=== PATIENT | female | born 1985 | race Caucasian/White ===

== ENCOUNTER 2016-06-05 13:07 | Outpatient (RCR) | payer OTHER ==
--- OUTSIDE RECORDS SUMMARY | 2016-03-11 12:51 | XMS REPORT | Continuity of Care Document ---
Author Author Interface Organization Interface Address Unknown Phone Unavailable Problems Problem Status Onset Date Classification Date Reported Comments Source No data available for this section Problem 11/01/2013 [facility] , function (observable entity) Resolved 09/20/2002 Problem 02/17/2014 [facility] Excessive growth, affecting management of mother, antepartum Diagnosis 09/29/2013 [facility] Normal delivery 02/12/2014 Diagnosis 02/17/2014 [facility] Medications Medication Details Route Status Patient Instructions Ordering Provider Order Date Source Allergies, Adverse Reactions, Alerts Substance Category Reaction Severity Reaction type Status Date Reported Comments Source Loratadine / Pseudoephedrine Assertion Palpitations Drug allergy [facility] Immunizations Immunization Date Given Site Status Last Updated Comments Source No data available for this section No data available for this section [facility] influenza virus vaccine 02/12/2014 Left Deltoid influenza virus vaccine Trinh [employer] Tdap 02/12/2014 Right Deltoid tetanus/diphth/pertuss (Tdap) adult/adol<sup>1< /sup> Trinh <sup>1</sup> Reason for Medication: See Instructions [employer]. Results Order Name Results Value Reference Range Date Interpretation Comments Source Vital Signs Vital Sign Value Date Comments Source Encounters Location Location Details Encounter Type Encounter Number Reason For Visit Attending Provider ADM Date DC Date Status Source [facility] [id number] Outpatient [id number] Anderson May 09/25/2013 09/25/2013 Active [employer] [facility] [id number] Outpatient [id number] Anderson May 10/27/2013 10/27/2013 Active [employer] [facility] [id number] Outpatient [id number] Anderson May 02/01/2014 02/02/2014 Active [employer] [facility] [id number] Inpatient [id number] Anderson Yadira 02/11/2014 02/13/2014 Active [facility] [id number] Anderson May 10/27/2013 10/29/2013 [facility] [id number] Anderson Yadira 09/25/2013 09/25/2013 [facility] Inpatient [id number] Anderson May 02/11/2014 02/13/2014 [facility] Outpatient Bed [id number] [facility] 12/18/2013 02/02/2014 [facility] Procedures Procedure Code Date Perfomer Comments Source No data available for this section [facility]. [facility]
== END 2016-06-09 | disposition home or self-care (01) ==
PROVIDERS: ATTEND Family Medicine
DX: S83.8X2A Sprain of other specified parts of left knee, initial encounter (principal); X58.XXXA Exposure to other specified factors, initial encounter; Y99.8 Other external cause status

== ENCOUNTER 2016-06-26 13:16 | Outpatient (RCR) | payer OTHER ==
--- OUTSIDE RECORDS SUMMARY | 2016-06-10 14:32 | XMS REPORT | Continuity of Care Document ---
Author Author Interface Organization Interface Address Unknown Phone Unavailable Problems Problem Status Onset Date Classification Date Reported Comments Source No data available for this section Problem 11/01/2013 [facility] , function (observable entity) Resolved 09/20/2002 Problem 02/17/2014 [facility] Excessive growth, affecting management of mother, antepartum Diagnosis 09/29/2013 [facility] Normal delivery 02/12/2014 Diagnosis 02/17/2014 [facility] Medications Medication Details Route Status Patient Instructions Ordering Provider Order Date Source Allergies, Adverse Reactions, Alerts Substance Category Reaction Severity Reaction type Status Date Reported Comments Source Loratadine / Pseudoephedrine Assertion Palpitations Drug allergy [facility] Immunizations Immunization Date Given Site Status Last Updated Comments Source No data available for this section No data available for this section [facility] influenza virus vaccine 02/12/2014 Left Deltoid influenza virus vaccine Trin[facility] [employer] Tdap 02/12/2014 Right Deltoid tetanus/diphth/pertuss (Tdap) adult/adol<sup>1< /sup> Trinh <sup>1</sup> Reason for Medication: See Instructions [employer] Results Order Name Results Value Reference Range Date Interpretation Comments Source Vital Signs Vital Sign Value Date Comments Source Encounters Location Location Details Encounter Type Encounter Number Reason For Visit Attending Provider ADM Date DC Date Status Source [facility] [id number] Outpatient [id number] Anderson May 09/25/2013 09/25/2013 Active [employer] [facility] [id number] Outpatient [id number] Anderson May 10/27/2013 10/27/2013 [facility] [employer] [facility] [id number] Outpatient [id number] Anderson May 02/01/2014 02/02/2014 Active [employer] [facility] [id number] Inpatient [id number] Anderson Yadira 02/11/2014 02/13/2014 Active [facility] [id number] Anderson Yadira 09/25/2013 09/25/2013 [facility] [id number] [facility] 10/27/2013 10/29/2013 [facility] Outpatient Bed [id number] Anderson Yadira 12/18/2013 02/02/2014 [facility] Inpatient [id number] [facility] 02/11/2014 02/13/2014 [facility] Procedures Procedure Code Date Perfomer Comments Source tonsillectomy and adenoidectomy 05/10/1989 [facility]. No data available for this section [facility]
== END 2016-08-05 09:36 | disposition home or self-care (01) ==
PROVIDERS: ATTEND Family Medicine
DX: S83.8X2A Sprain of other specified parts of left knee, initial encounter (principal); X58.XXXA Exposure to other specified factors, initial encounter; Y99.8 Other external cause status

== ENCOUNTER 2020-03-29 13:04 | Outpatient (RCR) | payer OTHER | END 2020-04-18 | disposition home or self-care (01) | PROVIDERS: ATTEND Family Medicine | DX: G54.0 Brachial plexus disorders (principal); G43.909 Migraine, unspecified, not intractable, without status migrainosus; E07.9 Disorder of thyroid, unspecified; Z91.09 Other allergy status, other than to drugs and biological substances ==

== ENCOUNTER → 2020-12-20 | Outpatient (CLI) | payer OTHER ==
--- NOTE | 2020-12-20 17:01 | Diagnostic Imaging Report ---
PROCEDURE: MRI lumbar spine. TECHNIQUE: Multiplanar, multisequence MRI of the lumbar spine was performed without contrast. INDICATION: Midline low back pain. No prior studies are available for comparison. The curvature and alignment of the lumbar spine is normal. Vertebral body heights are well-maintained. No geographic marrow signal abnormality is seen. There are Modic changes identified in the endplates at the L3-L4 and L4-L5 levels from degenerative disc disease. There is some loss of height and signal intensity to the L3-L4, L4-L5 and L5-S1 intervertebral disc compatible with degenerative change. The conus has a normal appearance at the L1 level. T12-L1: The central canal and neural foramina are widely patent. L1-L2: Central canal and neural foramina are widely patent. L2-L3: Central canal neural foramina are widely patent. L3-L4: Annular bulging does flatten the ventral thecal sac but the central canal remains patent. There is narrowing of the lateral recesses bilaterally. There also appears to be some mild neural foraminal narrowing bilaterally particularly on the right. L4-L5: There is a small right paramidline wide-based midline bulge indenting the ventral thecal sac producing slight narrowing of the central canal. Lateral recesses are narrowed bilaterally. In addition there is a [id number] bilateral neural foraminal narrowing. L5-S1: There is a wide-based midline/right para-midline disc bulge. This does narrow the right lateral recess. There may be some slight impingement upon the right S1 nerve root. Central canal is patent. Neural foramina are mildly narrowed. Paraspinous tissues are unremarkable. IMPRESSION: Lower lumbar spondylosis. There is some mild disc bulging resulting in some lateral recess and neural foraminal narrowing described level by level above. There does appear to be very slight narrowing of the central canal at L4-L5 level. Dictated by: Dictated on workstation # [id number]
== END ==
LOC: RAD 13:44
PROVIDERS: ATTEND Family Medicine
DX: M47.816 Spondylosis without myelopathy or radiculopathy, lumbar region (principal); M51.26 Other intervertebral disc displacement, lumbar region; M48.061 Spinal stenosis, lumbar region without neurogenic claudication
CPT/HCPCS: 72148

== ENCOUNTER 2021-03-21 13:38 | Outpatient (RCR) | payer OTHER | END 2021-03-25 | disposition home or self-care (01) | DX: M47.816 Spondylosis without myelopathy or radiculopathy, lumbar region (principal) ==

== ENCOUNTER 2021-04-30 13:09 | Outpatient (RCR) | payer OTHER | END 2021-05-09 | disposition home or self-care (01) | DX: M54.50 Low back pain, unspecified (principal) ==

== ENCOUNTER 2021-05-28 13:06 | Outpatient (RCR) | payer OTHER | END 2021-06-09 | disposition home or self-care (01) | DX: M54.50 Low back pain, unspecified (principal) ==

== ENCOUNTER → 2021-11-14 | Outpatient (CLI) | payer OTHER ==
--- NOTE | 2021-11-14 13:04 | Diagnostic Imaging Report ---
INDICATION: Right supraclavicular nodule. Sonographic interrogation of the lump in the right supraclavicular location was performed. There is a cystic lesion with internal debris and septations at this location measuring 2.1 x 1.8 x 2.2 cm. No internal vascularity is seen. No other abnormalities are detected. IMPRESSION: Nonspecific complex cystic mass at the area of palpable abnormality in the supraclavicular location on the right. CT through this area may be useful for better characterization, if clinically indicated. Dictated by: Dictated on workstation # [id number]
== END ==
LOC: RAD 12:23
PROVIDERS: ATTEND Family Medicine
DX: R22.1 Localized swelling, mass and lump, neck (principal)
CPT/HCPCS: 76536

== ENCOUNTER → 2021-11-28 | Outpatient (CLI) | payer OTHER ==
--- NOTE | 2021-11-28 15:15 | Diagnostic Imaging Report ---
CLINICAL INDICATION: Patient with supraclavicular nodule/cystic mass on ultrasound. EXAM: Axial CT scan of the neck soft tissue performed without IV contrast. Sagittal and coronal reformatted images are created. COMPARISON: Ultrasound of the neck soft tissue dated 11/14/2021. FINDINGS: There is a ill-defined nodular-like area in the right supraclavicular region and is seen just lateral to the distal right internal jugular vein. This area measures 1.0 cm x 1.7 cm in AP by transverse dimension. This is seen just inferiorly adjacent to the BB marker involving the anterior right neck region. Previous ultrasound exam measured lesion of concern at 2.1 cm x 1.8 cm x 2.2 cm and demonstrated internal debris and septations. It appears that these 2 areas may be in the same location. Otherwise there is no other neck soft tissue abnormality near the BB marker. There are multiple lymph nodes involving both sides of the neck which are all subcentimeter short axis. These are likely reactive. The nasopharynx, oropharynx, hypopharynx, laryngeal soft tissue structures are unremarkable. Thyroid gland is unremarkable. Salivary glands are unremarkable. Visualized upper lung elise are clear. There are small degenerative spurs involving the lower cervical spine. Visualized portions of lower cavity, tongue, sublingual and submandibular regions are unremarkable. Orbits and globes are unremarkable. Limited visualization intracranial structures are unremarkable. Besides upper lung elise are clear. IMPRESSION: 1: There is a nodular low-density area in the right supraclavicular region which measures 1.7 cm in greatest dimension. Unknown if this represents the similar area seen on the prior ultrasound which measured up to 2.2 cm. It appears that this lesion correlates with the comparison study. An inflamed lymph node may be considered. A malignant lymph node or other mass should be excluded. Followup CT scan of the neck soft tissue with contrast is suggested in 2 months to evaluate for interval change. 2: Likely reactive multiple bilateral neck lymph nodes. Dictated by: Dictated on workstation # [id number]
== END ==
LOC: RAD 13:45
PROVIDERS: ATTEND Nurse Practitioner Family
DX: R22.1 Localized swelling, mass and lump, neck (principal)
CPT/HCPCS: 70490

== ENCOUNTER 2022-05-08 12:49 | Outpatient (RCR) | payer OTHER | END 2022-05-09 | disposition home or self-care (01) | DX: M54.50 Low back pain, unspecified (principal) ==

== ENCOUNTER 2022-06-03 13:00 | Outpatient (RCR) | payer OTHER | END 2022-06-09 | disposition home or self-care (01) | DX: M54.16 Radiculopathy, lumbar region (principal) ==

== ENCOUNTER 2022-07-03 13:07 | Outpatient (RCR) | payer OTHER | END 2022-07-07 | disposition home or self-care (01) | DX: M54.16 Radiculopathy, lumbar region (principal) ==

== ENCOUNTER 2022-08-05 13:32 | Outpatient (RCR) | payer OTHER | END 2022-08-07 | disposition home or self-care (01) | DX: M54.16 Radiculopathy, lumbar region (principal) ==

== ENCOUNTER 2022-09-04 13:08 | Outpatient (RCR) | payer OTHER | END 2022-09-06 | disposition home or self-care (01) | DX: M54.16 Radiculopathy, lumbar region (principal); M62.81 Muscle weakness (generalized) ==

== ENCOUNTER 2022-09-23 13:01 | Outpatient (RCR) | payer OTHER | END 2022-10-02 15:58 | disposition home or self-care (01) | DX: M54.16 Radiculopathy, lumbar region (principal); M62.81 Muscle weakness (generalized) ==